=== PATIENT | male | born 1975 | race African-American/Black ===

== ENCOUNTER 2019-11-25 16:43 | Emergency (ER) | payer OTHER, BC ==
[~2019-11-25] VITALS: Ht 185.4 cm; Wt 73.0 kg
[2019-11-25] MEDS ORDERED: MUPI22OI2 TP (18:22)
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
[2019-11-25 18:27] VITALS: BP 132/59
== END 2019-11-25 18:32 | disposition home or self-care (01) ==
LOC: ER 16:43
DX: S01.511A Laceration without foreign body of lip, initial encounter (principal); V49.49XA Driver injured in collision with other motor vehicles in traffic accident, initial encounter; Y93.89 Activity, other specified; Y92.488 Other paved roadways as the place of occurrence of the external cause; Y99.8 Other external cause status
CPT/HCPCS: 99283